=== PATIENT | female | born 1990 | race Caucasian/White ===

== ENCOUNTER 2018-08-05 23:00 | Emergency (ER) | payer MEDICAID ==
--- NOTE | 2018-08-05 23:42 | ED Physician Chart ---
ED Chief Complaint/HPI - Patient Information Date Seen:: 08/05/18 Time Seen:: 23:38 Chief Complaint:: Migraine headache History of Present Illness:: 27 yo female with history of migraine headache for 3 years, developed frontal headache, dizziness, photosensitivity and nausea for 3 days. Pt took ecotrin without relief of headache. In the past, her migraine could be controlled by ibuprofen or tylenol. Allergies:: Allergies Allergy/AdvReac Type Severity Reaction Status Date / Time No Known Allergies Allergy Verified 08/05/18 23:24 Vitals:: Vital Signs - 8 hr 08/05/18 23:10 Temp 97.8 F HR 63 RR 16 BP 130/80 O2 Sat % 98 ED Review of Systems - Review of Systems General/Constitutional: No fever, No chills Skin: No rash Head: Headache Eyes: No pain ENT: No nasal drainage Neck: No neck pain Cardio Vascular: No chest pain Pulmonary: SOB GI: Nausea, No vomiting Musculoskeletal: No bone or joint pain Psychiatric: No prior psych history Neurological: No focal symptoms ED Past Medical History - Past Medical History Past Medical History: No significant medical hx, Other (migraine headache) Social History: Non Smoker (former smoker), Alcohol (occasional), No Drug Use Surgical History: None Family Medical History - Family Member Mother History Unknown: Yes ED Physical Exam - Physical Examination General/Constitutional: Awake, Alert Head: Atraumatic Eyes: PERRL, EOMI Skin: No skin lesions ENMT: Nasal exam nl Neck: No nuchal rigidity Respiratory: No Wheeze/Rhonchi/Rales Cardio Vascular: RRR, No murmur, gallop, rubs, NL S1 S2 GI: No tenderness/rebounding/guarding Extremities: normal strength in all extremities Neuro/Psych: No focal deficits ED Labs/Radiology/EKG Results - Lab Results Results: Laboratory Tests 08/05/18 23:32 POC Ur Test Negative ED Assessment - Assessment General Assessment: Migraine headache Assessment/Comments:: Promethazine 25mg IM Benadryl 25mg IM ED Septic Shock - . Is Septic Shock (SBP<90, OR Lactate>4 mmol\L) present?: No - <6hrs of presentation: Vital Signs: Vital Signs - 8 hr 08/05/18 23:10 Temp 97.8 F HR 63 RR 16 BP 130/80 O2 Sat % 98 ED Reassessment (Disposition) - Reassessment Reassessment Condition:: Improved - Aftercare/Follow up Instructions Notes:: F/u PCP or return to ER if symptoms worsen - Patient Disposition Discharge/Transfer:: Home
[2018-08-06 00:15] LABS: URINE SOURCE MIDSTREAM
[2018-08-06 00:27] LABS: URINE BILIRUBIN NEGATIVE (NEGATIVE); URINE BLOOD NEGATIVE (NEGATIVE); URINE CLARITY CLEAR (CLEAR); URINE COLOR YELLOW; URINE GLUCOSE (UA) NEGATIVE (NEGATIVE); URINE KETONE NEGATIVE (NEGATIVE); URINE LEUKOCYTE ESTERASE NEGATIVE (NEGATIVE); URINE MICROSCOPIC INDICATED? NO; URINE NITRATE NEGATIVE (NEGATIVE); URINE PH 6.5 (4.6 - 8.0); URINE PROTEIN NEGATIVE (NEGATIVE); URINE UROBILINOGEN 0.2 E.U./dL (0.2 - 1.0)
== END 2018-08-06 00:37 | disposition home or self-care (01) ==
LOC: ER 23:00
DX: G43.909 Migraine, unspecified, not intractable, without status migrainosus (principal)
CPT/HCPCS: 81003-TC; 81025-TC; J1200; Z7502